=== PATIENT | female | born 1975 | race Caucasian/White ===

== ENCOUNTER → 2016-08-26 | Outpatient (CLI) | payer OTHER ==
--- NOTE | 2016-08-26 13:57 | MAMMOGRAPHY REPORT ---
BILATERAL DIGITAL DIAGNOSTIC MAMMOGRAM TOMOSYNTHESIS WITH CAD AND TARGETED BILATERAL ULTRASOUND: 08/08 CLINICAL HISTORY: History of benign core needle biopsy July 2015 of a right 12:00 breast mass which yielded a benign fibroadenoma. Here for six-month follow-up of another right 12:00 breast mass. A lso due for routine mammography of the left breast. TECHNIQUE: Breast tomosynthesis in addition to standard 2D mammography was performed. Current study was also evaluated with a Computer Aided Detection (CAD) system. Bilateral CC and MLO 2-D and janet synthesis images and spot compression left CC and MLO 2-D and tomosynthesis images were obtained. COMPARISON: Comparison is made to exams dated: 01/29/2016 ultrasound, 01/29/2016 mammogram, 07/29/2015 mammogram, 07/29/2015 ultrasound biopsy, 07/22/2015 ultrasound, and 07/02/2015 mammogram - [facility]. BREAST COMPOSITION: There are scattered areas of fibroglandular density in both breasts. FINDINGS: A biopsy marker clip is again noted within the right upper and slightly lateral breast at the site of prior biopsy which yielded a benign fibroadenoma. Again noted is a left-sided partiall y circumscribed and partially obscured mass seen within the right 12:00 breast, which does not appea r significantly changed in size mammographically although is better evaluated on ultrasound. There is a round 5 mm non-circumscribed mass seen within the left lateral breast on the cc view, with a po ssible correlate seen in the left superior breast on the MLO view. This mass was not clearly eviden t on the prior exam. The remainder of both breasts are stable compared to prior exams, without susp icious masses, calcifications, or areas of architectural distortion noted. Targeted ultrasound was performed of the area of the previously seen right breast mass. In the righ t breast at 12:00, 3 cm from the nipple, again noted is an oval hypoechoic circumscribed mass which measures 6 x 4 x 8 mm. The mass does not appear significantly changed compared to prior exams datin g back to July 2015, where the mass measured 6 x 4 x 7 mm. The previously biopsied benign mass is again noted in the right breast at 12:00, 5 cm from the nipple, measuring 10 x 9 x 3 mm. Targeted ultrasound was performed of the left lateral breast in the region of the mammographic mass. A benign intramammary lymph node is seen within the left breast at 3:00, 4 cm from the nipple, torrey suring 7 x 3 mm. In the left breast at 1:00, 6 cm from the nipple, there is a lobulated circumscrib ed isoechoic mass with echogenic internal septations, measuring 7 x 3 x 5 mm. No internal vasculari ty is evident. This likely corresponds with the mammographic mass and is indeterminate given that i t is newly visualized. Recommend ultrasound guided core needle biopsy for further evaluation. IMPRESSION: ACR BI-RADS CATEGORY 4: SUSPICIOUS, TARGETED ULTRASOUND ACR BI-RADS CATEGORY 4: SUSPICI OUS 1. Newly visualized 7 mm isoechoic mass in the left breast at 1:00, which is indeterminate given th at it is newly visualized and ultrasound guided core needle biopsy is recommended for further evalua tion. Considerations include a fibroadenoma, complicated cyst, or lymph node. 2. Hypoechoic 8 mm mass seen within the right 12:00 breast is stable dating back to the July 2015 exam, and is probably benign and likely represents a fibroadenoma. Options of further short interva l follow-up versus biopsy were discussed with the patient. We will attempt biopsy of this mass at t he time of the left breast biopsy, although it is in a far posterior location and may not be amenabl e to ultrasound-guided biopsy. If the mass cannot be biopsied, short interval follow-up can be perf ormed (1 hour time slot). A phone call was made to the physician's office to confirm faxed results were received. The patient has been verbally notified of the results. She tentatively scheduled the biopsies before leaving t he department. Approximately 10% of breast cancers are not detected with mammography. A negative mammographic repor t should not delay biopsy if a clinically suggestive mass is present. Gaby Ball M.D. ah/:08/26/2016 10:37:42 Technology Adoption Manager: Kay LONGORIA)(Melyssa), [facility] letter sent: Abnormal 4/5 BI-RADS Code: ACR BI-RADS Category 4: Suspicious Ultrasound BI-RADS: ACR BI-RADS Category 4: Suspic ious
== END | disposition home or self-care (01) ==
LOC: C.MAMM 09:18
PROVIDERS: ATTEND Family Medicine
DX: Z09 Encounter for follow-up examination after completed treatment for conditions other than malignant neoplasm (principal); N63 Unspecified lump in breast

== ENCOUNTER → 2016-09-04 | Outpatient (CLI) | payer OTHER ==
--- NOTE | 2016-09-04 13:57 | Discharge Instructions ---
Discharge Instructions Procedure Procedure Date: Sep 04, 2016. Reason for visit: Bilateral Masses. Discharge Discharge Date: Sep 04, 2016. Discharge Diagnosis: status post breast biopsy Instructions Activity Recommendations: Additional Limitations (see below) Return to School/Work: no limitations Recommended Home Diet: No Limitations Provider Instructions: ACTIVITY RECOMMENDATIONS: * No lifting, pushing, pulling or exercising the affected side for three days. RETURN TO SCHOOL/WORK: * You may return to work/school after the procedure, but do not perform any strenuous activities for 24 to 48 hours. MEDICATIONS: * Tylenol (two 325 mg) every four to six hours if needed for mild pain (if not allergic to Tylenol). DIET: * Resume previous diet. SPECIAL CARE INSTRUCTIONS: * Keep biopsy site dry for 24 hours. May shower after 24 hours, but do not soak (bathe) incision. * May remove Tegaderm (plastic patch) tomorrow AFTER showering. * Leave the steri-strips on for one week. Allow the steri-strips to fall off by themselves. If not off after one week, you may remove them. You may place a Bandaid crosswise over the strips, if desired. * Apply ice 10 minutes on and 10 minutes off as needed. * Wear a bra at bedtime to sleep more comfortably for 2-3 days. * Your referring physician should have the results after approximately 5 to 7 business days. * Call for unusual bleeding, fever, drainage, etc or if you have any questions call during normal business hours or after hours call Dr Ball, [phone]. FOLLOW UP VISIT: Follow-up with Referring Physician as scheduled. Joby Delgadoy Recommendations: Call your doctor if: * Temperature above 101 degrees * Pain not relieved by pain medicine ordered * There is increased drainage or redness from any incision * You have any unanswered questions or concerns. Your Doctors Instructions noted above were prepared by provider Gaby Ball. Patient Signature Section: Patient Instructions Signature Page Nereyda No Patient (or Guardian) Signature/Date: I have read and understand the instructions given to me by my caregivers. Caregiver/RN/Doctor Signature/Date: The above-named patient and/or guardian has received patient instructions on this date. + Original Patient Signature Page (only) stays with chart. Please make copy for patient.
--- NOTE | 2016-09-07 12:26 | MAMMOGRAPHY REPORT ---
ULTRASOUND GUIDED BIOPSY LEFT BREAST: 09/04/2016 CLINICAL HISTORY: Left 1:00 breast mass. PATIENT CONSENT: The procedure, risks and benefits were discussed with the patient and informed writ ten consent was obtained. A timeout was performed immediately prior to the procedure. PROCEDURE DESCRIPTION: With ultrasound guidance, aseptic technique, and lidocaine as the local anest hetic (1% lidocaine to anesthetize the skin and 1% lidocaine with epinephrine to anesthetize the kim per tissues), the mass of concern in the left 1:00 breast was sampled 6 times with a 14-gauge achiev e biopsy needle. Direct pressure was applied to the site immediately post procedure and hemostasis was achieved. Immediately thereafter, with ultrasound guidance, aseptic technique, and lidocaine as the local anesthetic, a metallic localizer clip was placed at the biopsy site. Direct pressure was applied to the site immediately post procedure and hemostasis was achieved. Postprocedure unilater al mammograms were performed to confirm placement of the clip in the expected location of the breast mass. The patient tolerated the procedure without complication. She was given wound care instruct ions. The specimens were sent to pathology for analysis. COMPARISON: Comparison is made to exams dated: 08/26/2016 ultrasound, 08/26/2016 mammogram, 01/29/2016 ultrasound, 01/29/2016 mammogram, 07/29/2015 mammogram, and 07/29/2015 ultrasound biopsy - [facility]. IMPRESSION: ULTRASOUND GUIDED BIOPSY Ultrasound-guided biopsy of the left 1:00 breast mass, with clip placement. The patient will receiv e pathology results from her referring provider. Gaby Ball M.D. ah/:09/04/2016 16:17:50 Attending Technologist: Pratibha GORDILLO(R)(M), [facility] Music Therapist: Gaby Ball MD, [facility]
--- NOTE | 2016-09-07 12:26 | MAMMOGRAPHY REPORT ---
THIS REPORT HAS BEEN AMENDED. ULTRASOUND GUIDED BIOPSY RIGHT BREAST: 09/04/2016 CLINICAL HISTORY: Right 12:00 breast mass. PATIENT CONSENT: The procedure, risks and benefits were discussed with the patient and informed writ ten consent was obtained. A timeout was performed immediately prior to the procedure. PROCEDURE DESCRIPTION: With ultrasound guidance, aseptic technique, and lidocaine as the local anest hetic (1% lidocaine to anesthetize the skin and 1% lidocaine with epinephrine to anesthetize the kim per tissues), the mass of concern in the right 12:00 breast posteriorly was sampled one time with a 14-gauge achieve biopsy needle. The sample did not clearly traverse the mass. Further core biopsy samples not be obtained due to difficulties reaching the mass due to the far posterior location. Th erefore, the decision was made to attempt fine-needle aspiration to obtain further tissue. Multiple passes were made through the mass using a 22-gauge needle attached to a syringe. Three sets of pass es were made. These samples were sent to cytology on a slide as well as in [employer]. A metallic loca lizer clip was placed centrally into the mass. Direct pressure was applied to the site immediately post procedure and hemostasis was achieved. Postprocedure unilateral mammograms were performed to c onfirm placement of the clip in the expected location of the breast mass. The patient tolerated the procedure without complication. She was given wound care instructions. The specimens were sent to pathology for analysis. COMPARISON: Comparison is made to exams dated: 08/26/2016 ultrasound, 08/26/2016 mammogram, 01/29/2016 ultrasound, 01/29/2016 mammogram, 07/29/2015 mammogram, and 07/29/2015 ultrasound biopsy - [facility]. IMPRESSION: ULTRASOUND GUIDED BIOPSY Attempted ultrasound-guided core needle biopsy as well as fine-needle aspiration of the right 12:00 breast mass, with difficulties sampling the mass due to the far posterior location. A clip was plac ed. The patient will receive pathology/cytology results from her referring provider. The results w ill be reviewed and an addendum will be made if there are further recommendations once results are r eviewed. Gaby Ball M.D. ah/:09/04/2016 16:26:15 Attending Technologist: Pratibha GORDILLO(R)(M), [facility] Medical Officer Psychiatry: Gaby Ball MD, [facility] AMENDMENT: 09/09/2016 Gaby Ball M.D. Pathology results from bilateral breast biopsies were reviewed on 09/09/2016. The pathology of the le ft 1:00 breast biopsy shows a fibroadenoma, which is concordant with the imaging findings. The core biopsy of the right 12:00 mass yielded a benign fibroadenoma. Fine-needle aspiration of the same m ass yielded an atypical ductal proliferation, which the pathologist reported is nonspecific and eval uation is limited due to low cellularity. Given that the core biopsy of the same mass yielded benign fibroadenoma, and given the benign appearance of the mass on imaging, the mass is felt to be benign . Recommend follow-up diagnostic tomosynthesis mammograms of the right breast and possible ultrasou nd in 6 months to reevaluate. Recommendations were discussed with Dr. Racson on 09/09/16.
--- NOTE | 2016-09-07 12:26 | MAMMOGRAPHY REPORT ---
BILATERAL DIGITAL DIAGNOSTIC MAMMOGRAM: 09/04/2016 CLINICAL HISTORY: Status post bilateral breast biopsies. TECHNIQUE: Postprocedural bilateral CC and ML views were obtained. COMPARISON: Comparison is made to exams dated: 08/26/2016 mammogram, 01/29/2016 mammogram, and 016 mammogram - [facility]. BREAST COMPOSITION: There are scattered areas of fibroglandular density in both breasts. FINDINGS: A new biopsy marker clip is seen at the site of the biopsied mass in the right 12:00 post erior breast. A new biopsy marker clip is seen in the expected location of the biopsied mass in the left upper outer quadrant. No significant postbiopsy hematoma is seen. IMPRESSION: POST PROCEDURE IMAGING FOR MARKER PLACEMENT New biopsy marker clips status post bilateral breast biopsies. Pathology results are pending. Approximately 10% of breast cancers are not detected with mammography. A negative mammographic repor t should not delay biopsy if a clinically suggestive mass is present. Gaby Ball M.D. ah/:09/04/2016 16:27:45 Card Services Specialist: Pratibha GORDILLO(Julien)(M), [facility] BI-RADS Code: Post Procedure Imaging For Marker Placement
== END | disposition home or self-care (01) ==
LOC: C.MAMM 12:39
PROVIDERS: ATTEND Family Medicine
DX: D24.2 Benign neoplasm of left breast (principal); D24.1 Benign neoplasm of right breast; N60.81 Other benign mammary dysplasias of right breast

== ENCOUNTER → 2016-10-06 | Outpatient (CLI) | payer OTHER ==
[2016-10-06 13:33] LABS: BASO ABS # 0.04 K/uL (0-0.2); COMPLETE YES; EOS % 2.4 %; HEMATOCRIT 39.5 % (37-47); IG% 0.2 %; LYMPH % 24.4 %; MEAN CELL VOLUME 91.4 fL (80-100); MEAN CORPUSCULAR HEMOGLOBIN 33.3 pg (25-34); MEAN CORPUSCULAR HGB CONC 36.5 g/dl (32-36); MEAN PLATELET VOLUME 11.6 fL (7.4-10.4); MONO % 8.3 %; NEUT % 63.7 %; PLATELET COUNT 193 K/uL (130-400); RED BLOOD COUNT 4.32 M/uL (4.2-5.4); WHITE BLOOD COUNT 4.09 K/uL (4.8-10.8)
[2016-10-06 14:08] LABS: CALCIUM 8.8 mg/dl (8.5-10.1)
[2016-10-06 14:09] LABS: ALT/SGPT 36 U/L (12-78); BLOOD UREA NITROGEN 21 mg/dl (7-18); BUN/CREATININE RATIO 25.3 (10-20); CARBON DIOXIDE 27 mmol/L (21-32); CHLORIDE 107 mmol/L (98-107); CREATININE 0.81 mg/dl (0.60-1.20); GLUCOSE 82 mg/dl (70-99); POTASSIUM 4.2 mmol/L (3.5-5.1); SODIUM 140 mmol/L (136-145)
[2016-10-06 14:18] LABS: ALB/GLOB RATIO 1.4 (0.9-2); ALKALINE PHOSPHATASE 60 U/L (45-117); AST/SGOT 22 U/L (15-37); FERRITIN 13.4 ng/ml (8.0-388.0); TOTAL IRON BINDING CAPACITY 351 mcg/dl (250-450)
== END | disposition home or self-care (01) ==
LOC: C.LABBC 11:14
PROVIDERS: ATTEND Family Medicine
DX: E53.8 Deficiency of other specified B group vitamins (principal); D50.9 Iron deficiency anemia, unspecified; Z98.84 Bariatric surgery status; E55.9 Vitamin D deficiency, unspecified

== ENCOUNTER → 2017-04-16 | Outpatient (CLI) | payer OTHER ==
--- NOTE | 2017-04-16 13:38 | MAMMOGRAPHY REPORT ---
UNILATERAL RIGHT DIGITAL DIAGNOSTIC MAMMOGRAM TOMOSYNTHESIS WITH CAD AND TARGETED RIGHT ULTRASOUND: 1 06/17/2016 CLINICAL HISTORY: History of ultrasound guided core needle biopsy of a right 12:00 breast mass August 2016, with pathology of the core biopsy yielding a benign fibroadenoma. Fine-needle aspiration was a lso performed of the mass at the same time, with pathology showing an atypical ductal proliferation, which the pathologist reported is nonspecific and evaluation is limited due to low cellularity. The patient presents for short interval follow-up of the biopsied mass. TECHNIQUE: Breast tomosynthesis in addition to standard 2D mammography was performed. Current study was also evaluated with a Computer Aided Detection (CAD) system. right CC and MLO 2-D and tomosynthes is images were obtained.. COMPARISON: Comparison is made to exams dated: 09/04/2016 mammogram, 09/04/2016 ultrasound biopsy, 08/09 ultrasound biopsy, 08/26/2016 ultrasound, 08/26/2016 mammogram, and 01/29/2016 ultrasound - [facility]. BREAST COMPOSITION: There are scattered areas of fibroglandular density in the right breast. FINDINGS: A oval circumscribed 7 mm mass with an associated biopsy marker clip in the right 12:00 po sterior breast is again noted and is stable in size and appearance dating back to at least the Jun 29 exam. This was previously biopsied with core needle biopsy yielding a benign fibroadenoma. The r emainder of the right breast is stable compared to prior exams, without suspicious masses, calcificat ions, or areas of architectural distortion noted. Another biopsy marker clip is seen within the righ t upper outer quadrant more superiorly from prior benign biopsy. Targeted ultrasound was performed of the previously biopsied mass in the right 12:00 breast. In the right 12:00 breast, 3 cm from the nipple, again noted is an oval hypoechoic parallel mass which measu res 7 x 3 x 5 mm. The mass is stable in size and appearance dating back to the July 2015 ultrasound , previously measuring 6 x 4 x 7 mm. Given the stability and given the benign results on the core ne edle biopsy, the mass is felt to be benign and likely represents a fibroadenoma. IMPRESSION: ACR BI-RADS CATEGORY 2: BENIGN, TARGETED ULTRASOUND ACR BI-RADS CATEGORY 2: BENIGN The previously biopsied 7 mm mass in the right 12:00 breast is stable dating back to the June exam, and is felt to be benign given the stability as well as benign results on the core needle bio psy. The mass is well-seen on full-field mammogram views and can be continued to be followed on rout ine annual mammography for any changes. There is no mammographic or targeted sonographic evidence of malignancy. Return to annual mammogram screening schedule is recommended, due August 2017. The ayden nt has been verbally notified of the results. Approximately 10% of breast cancers are not detected with mammography. A negative mammographic report should not delay biopsy if a clinically suggestive mass is present. Gaby Ball M.D. ah/:04/16/2017 11:57:11 Fiber Locking Supervisor: Heidi Amaro, [facility] letter sent: Normal 1/2 BI-RADS Code: ACR BI-RADS Category 2: Benign Ultrasound BI-RADS: ACR BI-RADS Category 2: Benign
== END | disposition home or self-care (01) ==
LOC: C.MAMM 09:47
PROVIDERS: ATTEND Physician Assistant
DX: N63.10 Unspecified lump in the right breast, unspecified quadrant (principal); Z98.890 Other specified postprocedural states

== ENCOUNTER → 2017-05-07 | Outpatient (CLI) | payer OTHER ==
[2017-05-07 13:43] LABS: ALBUMIN 4.2 gm/dl (3.4-5.0); ALT/SGPT 30 U/L (12-78); BLOOD UREA NITROGEN 18 mg/dl (7-18); CALCIUM 8.6 mg/dl (8.5-10.1); CARBON DIOXIDE 26 mmol/L (21-32); CHOLESTEROL 209 mg/dl (0-200); CREATININE 0.82 mg/dl (0.60-1.20); GLUCOSE 81 mg/dl (70-99); POTASSIUM 3.8 mmol/L (3.5-5.1); SODIUM 139 mmol/L (136-145)
[2017-05-07 13:47] LABS: ALKALINE PHOSPHATASE 63 U/L (45-117); AST/SGOT 15 U/L (15-37); LDL CHOLESTEROL CALCULATED 106 mg/dl; TOTAL PROTEIN 7.1 gm/dl (6.4-8.2); TRANSFERRIN 290 mg/dl (200-360)
[2017-05-07 13:57] LABS: BASO % 0.9 %; BASO ABS # 0.04 K/uL (0-0.2); EOS ABS # 0.18 K/uL (0-0.5); HEMATOCRIT 40.8 % (37-47); HEMOGLOBIN 14.9 g/dL (12.0-16.0); LYMPH % 20.6 %; LYMPH ABS # 0.93 K/uL (1.2-3.4); MEAN CELL VOLUME 92.1 fL (80-100); MEAN CORPUSCULAR HEMOGLOBIN 33.6 pg (25-34); MEAN CORPUSCULAR HGB CONC 36.5 g/dl (32-36); MEAN PLATELET VOLUME 11.9 fL (7.4-10.4); MONO % 8.9 %; NEUT % 65.6 %; NEUT ABS # 2.96 K/uL (1.4-6.5); PLATELET COUNT 178 K/uL (130-400); RED CELL DISTRIBUTION WIDTH CV 12.2 % (11.5-14.5); RED CELL DISTRIBUTION WIDTH SD 40.9 fL (36.4-46.3); WHITE BLOOD COUNT 4.51 K/uL (4.8-10.8)
== END | disposition home or self-care (01) ==
LOC: C.LABBC 12:06
PROVIDERS: ATTEND Nurse Practitioner Adult Health
DX: Z00.00 Encounter for general adult medical examination without abnormal findings (principal); D50.9 Iron deficiency anemia, unspecified; E53.8 Deficiency of other specified B group vitamins; E55.9 Vitamin D deficiency, unspecified; Z98.84 Bariatric surgery status

== ENCOUNTER → 2017-08-23 | Outpatient (CLI) | payer OTHER ==
[2017-08-23 12:20] LABS: HEMOGLOBIN 14.9 g/dL (12.0-16.0); MEAN CELL VOLUME 89.9 fL (80-100); MEAN CORPUSCULAR HEMOGLOBIN 33.5 pg (25-34); MEAN CORPUSCULAR HGB CONC 37.3 g/dl (32-36); MEAN PLATELET VOLUME 11.5 fL (7.4-10.4); PLATELET COUNT 189 K/uL (130-400); RED CELL DISTRIBUTION WIDTH CV 12.2 % (11.5-14.5); RED CELL DISTRIBUTION WIDTH SD 39.7 fL (36.4-46.3); WHITE BLOOD COUNT 3.87 K/uL (4.8-10.8)
== END | disposition home or self-care (01) ==
LOC: C.LAB1850 10:45
PROVIDERS: ATTEND Obstetrics & Gynecology
DX: N92.0 Excessive and frequent menstruation with regular cycle (principal)

== ENCOUNTER → 2017-08-23 | Outpatient (CLI) | payer OTHER | END | disposition home or self-care (01) | LOC: C.PAPS 14:11 | PROVIDERS: ATTEND Obstetrics & Gynecology | DX: Z12.4 Encounter for screening for malignant neoplasm of cervix (principal) ==

== ENCOUNTER → 2017-09-21 | Outpatient (CLI) | payer OTHER ==
--- NOTE | 2017-09-22 15:23 | MAMMOGRAPHY REPORT ---
BILATERAL DIGITAL SCREENING MAMMOGRAM TOMOSYNTHESIS WITH CAD: 09/21/2017 CLINICAL HISTORY: Routine screening. Patient has no complaints. TECHNIQUE: Breast tomosynthesis in addition to standard 2D mammography was performed. Current study was also evaluated with a Computer Aided Detection (CAD) system. COMPARISON: Comparison is made to exams dated: 04/16/2017 ultrasound, 04/16/2017 mammogram, 09/04/2016 mammogram, 09/04/2016 ultrasound biopsy, 09/04/2016 ultrasound biopsy, and 08/26/2016 ultrasound - [facility]. BREAST COMPOSITION: There are scattered areas of fibroglandular density in both breasts. FINDINGS: No new suspicious mass, architectural distortion or cluster of microcalcifications is seen . There are 2 stable masses with associated ribbon-shaped biopsy marker clips in the 11:00 to 12:00 right breast, and one stable mass with associated ribbon-shaped biopsy clip in the upper outer spring clipper ior left breast. In particular, the 12:00 right breast mass measures 7 mm and is unchanged in size d ating back to at least 01/29/2016. IMPRESSION: ACR BI-RADS CATEGORY 1: NEGATIVE There is no mammographic evidence of malignancy. A 1 year screening mammogram is recommended. The pa tient will receive written notification of the results. Approximately 10% of breast cancers are not detected with mammography. A negative mammographic report should not delay biopsy if a clinically suggestive mass is present. Tsering Simons M.D. ay/:09/21/2017 16:13:17 Attending Technologist: Zaida Ceron RT, [facility] Analytical Data Miner: Clementina GORDILLO,R, M, [facility] letter sent: Normal 1/2 BI-RADS Code: ACR BI-RADS Category 1: Negative
== END | disposition home or self-care (01) ==
LOC: C.MAMM 11:25
PROVIDERS: ATTEND Physician Assistant Medical
DX: Z12.31 Encounter for screening mammogram for malignant neoplasm of breast (principal)